=== PATIENT | female | born 1980 | race Caucasian/White ===

== ENCOUNTER 2017-07-28 11:06 | Emergency (ER) | payer MEDICAID ==
[2017-07-28 11:22] VITALS: O2SAT 100
--- NOTE | 2017-07-28 12:58 | C.PDOC ---
History Of Present Illness 36 yr old female presents to the ER with complaints of fever, body aches, runny nose and dry cough for 1 day. Patient reports of sick contact with children who are also patients in the ER. Denies chest pain, SOB, nausea, vomiting, abdominal pain, diarrhea, headache, weakness or numbness. Time Seen by Provider: 07/28/17 11:42 Chief Complaint (Nursing): Flu-like Symptoms History Per: Patient History/Exam Limitations: no limitations Onset/Duration Of Symptoms: Days (1) Sick Contacts (Context): Family Member(s) (children) Past Medical History Reviewed: Historical Data, Nursing Documentation, Vital Signs Vital Signs: Last Vital Signs Temp 99.9 F H 07/28/17 13:58 Pulse 100 H 07/28/17 13:58 Resp 20 07/28/17 13:58 BP 105/68 07/28/17 13:58 Pulse Ox 100 07/28/17 13:06 Family History: States: No Known Family Hx - Social History Hx Alcohol Use: No Hx Substance Use: No - Immunization History Hx Tetanus Toxoid Vaccination: No Hx Influenza Vaccination: No Hx Pneumococcal Vaccination: No Review Of Systems Except As Marked, All Systems Reviewed And Found Negative. Constitutional: Positive for: Fever (subjective), Other ((+) body aches) ENT: Positive for: Nose Discharge (runny nose) Cardiovascular: Negative for: Chest Pain Respiratory: Positive for: Cough (dry). Negative for: Shortness of Breath Gastrointestinal: Negative for: Nausea, Vomiting, Abdominal Pain, Diarrhea Neurological: Negative for: Weakness, Numbness, Headache Physical Exam - Physical Exam Appears: Well, Non-toxic, No Acute Distress Skin: Normal Color, Warm, Dry, No Rash Head: Normacephalic Eye(s): bilateral: PERRL Ear(s): Bilateral: Normal Nose: No Flaring, Discharge (B/L, clear) Oral Mucosa: Moist, No Drooling Throat: Normal, No Erythema, No Drooling Neck: Trachea Midline, Supple, Other ((-) meningeal sign) Cardiovascular: Rhythm Regular Respiratory: No Decreased Breath Sounds, No Accessory Muscle Use, No Stridor, No Wheezing Gastrointestinal/Abdominal: Soft, No Tenderness, No Distention, No Guarding Back: Normal Inspection, No CVA Tenderness Extremity: Normal ROM, No Deformity, No Swelling Neurological/Psych: Oriented x3, Normal Speech ED Course And Treatment O2 Sat by Pulse Oximetry: 100 (RA) Pulse Ox Interpretation: Normal Progress Note: On re-eval, pt is afebrile, hemodynamicaly stable. Non-toxic. Tolerate Po well in ED. PUlsEOx 100% RA. Neck: Supple, (-) meningeal sign. ENT : no acute findings. Lungs: CTA B/L, BS equal B/L. CVS: (+)S1S2, reg. Abd: benign. Neurologicaly intact. INfluenza A (+). Pt advised on course of ds. ref. to F/u with PMD In 2-3 days for re-eval. return if any new changes. Medical Decision Making Medical Decision Making: PLAN: * Influenza * Motrin PO * Tamiflu PO Disposition Counseled Patient/Family Regarding: Studies Performed, Diagnosis, Need For Followup, Rx Given - Disposition Referrals: [facility] [Outside] Disposition: HOME/ ROUTINE Disposition Time: 12:56 Condition: STABLE Additional Instructions: ENCOURAGE FLUIDS TAKE MEDICATION PRESCRIBED FOLLOW UP WITH PMD IN 2-3 DAYS FOR RE-EVALUATION. RETURN TO ED IF ANY WORSENING OR NEW CHANGES. 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 - Scribe Statement The provider has reviewed the documentation as recorded by the Scribe Alie Dutton All medical record entries made by the Scribe were at my direction and personally dictated by me. I have reviewed the chart and agree that the record accurately reflects my personal performance of the history, physical exam, medical decision making, and the department course for this patient. I have also personally directed, reviewed, and agree with the discharge instructions and disposition.
[2017-07-28 13:59] VITALS: BP 105/68; PULSE 100; RESP 20; TEMP 99.9
== END 2017-07-28 13:57 | disposition home or self-care (01) ==
LOC: C.ER 11:06
DX: J11.1 Influenza due to unidentified influenza virus with other respiratory manifestations (principal)